=== PATIENT | female | born 1950 | race Caucasian/White ===

== ENCOUNTER 2017-01-05 23:34 | Inpatient (IN) ==
--- NOTE | 2017-01-05 23:52 | Emergency Department Note ---
Arrival - Arrival Chief Complaint: Chest Pain Stated Complaint: Chest pain ED Nursing Triage Note: Patient to ED via EMS transferre to us from [facility] with c/ o chest pain. Patient had elevated troponin and D dimer at other ED. Upon arrival to [place] patient is having no chest pain but c/o right arm pain. Mode of Arrival: Stretcher Limitations: No Limitations Source: Patient Time Seen by Provider: 01/05/17 23:48 - History of Present Illness HPI Narrative: This 66-year-old black female presents with a history of chest pain associated with shortness of breath, nausea, and diaphoresis. The patient initially went to [facility] where she was initially evaluated and found to have both elevated troponins and d-dimer. For that reason she was transferred to our unit. Prior to transfer she was given Lovenox, morphine, aspirin, and Nitrol paste the patient denies a prior cardiac history and in fact feels back to normal at this point time. Onset (ago): hour(s) (Patient presents 4 hours post onset of symptoms) Allergies/Adverse Reactions: Allergies Allergy/AdvReac Type Severity Reaction Status Date / Time No Known Allergies Allergy Unverified 01/05/17 23:42 Review of System - Review of System 12 point system: reviewed and no additional remarkable complaints except as stated - Review of System Constitutional: Present: as per HPI Respiratory: Present: as per HPI Cardiovascular: Present: as per HPI Gastrointestinal: Present: as per HPI Medical,Surgical,& Family Hx - Medical History Cardio: History of: Hypertension Endocrine: History of: Diabetes Mellitus (NIDDM) - Social History Smoking Status: Never smoker Frequency of Alcohol Use: None Type of Drug Use: None Exam Physical Examination: GENERAL: Thin chronically ill-appearing black female in no acute distress. HEENT: Normocephalic. No trauma. Moist mucous membranes. EOMI. PERRLA. ENT NML NECK: Supple. No adenopathy. CARDIAC: Regular. No murmurs. Heart rate 120 CHEST: Clear to auscultation. No respiratory distress. O2 sat 100% ABDOMEN: Soft. Nontender. Active bowel sounds. EXTREMITIES: No trauma. Normal ROM. No pedal edema. SKIN: No diaphoresis. No rash. NEURO: Alert. Neuro intact no focal deficits. Vital Signs: Vital Signs Temperature 98.6 F 01/05/17 23:34 Pulse Rate 116 H 01/05/17 23:34 Respiratory Rate 20 01/05/17 23:50 Blood Pressure 157/71 01/05/17 23:34 O2 Sat by Pulse Oximetry 99 01/05/17 23:34 Course - Reevaluation(s) Reevaluation #1: Have discussed with patient need for hospitalization given evidence of non- STEMI VT - Consultations Consultation #1: Discussed with Dr. Su who will admit the patient for further evaluation treatment. Results - Labs Labs: Lab per [facility] white blood cell count 5700, hematocrit 36.9, d-dimer 1415, troponin 0.234 glucose 237, BUN 10, creatinine 1.2, sodium 137, potassium 3.7. Troponin here is 2.23 and d-dimer 1.1 - Impressions EKG per [facility] reveals sinus tachycardia at 110 with normal SC interval and QRS duration. Noted was either old anterior VT are poor R-wave progression anteriorly. Diffuse nonspecific ST changes. No acute injury pattern noted. EKG: Done on arrival here demonstrates sinus tachycardia at 112 with normal SC interval and QRS duration with evidence of old septal VT versus poor R-wave progression anteriorly. Nonspecific ST changes. No acute injury pattern noted. - Diagnostic Findings Procedure: Chest x-ray: image reviewed by me, report reviewed by me (Evidence of COPD) Disposition Clinical Impression: Non-STEMI VT Case discussed with: patient Disposition: Still a Patient Condition: Guarded Time of Disposition: 01:14
[2017-01-06 00:33] LABS: CKMB % 7.3 %
[2017-01-06 00:35] LABS: Troponin I Only 2.23 NG/ML (0.00-0.045)
[2017-01-06] MEDS ORDERED: HYDROmorphone 2 MG/1 ML VIAL IV PRN (01:50)
[2017-01-06] MEDS ORDERED: DEXTROSE 50% 25 GM/50 ML VIAL IV PRN (01:50)
[2017-01-06] MEDS ORDERED: ONDANSETRON 4 MG/2 ML VIAL IV PRN (01:50)
[2017-01-06] MEDS ORDERED: GLUCAGON 1 MG VIAL IM PRN (01:50)
[2017-01-06] MEDS ORDERED: PNEUMOCOCCAL VACCINE (13 VALENT) 0.5 ML SYRINGE IM ONE (02:49)
[2017-01-06] MEDS: NITROGLYCERIN 2% OINT 1 INCH/GM PACK TOP SCH ×3 (06:16→20:46)
--- NOTE | 2017-01-06 06:33 | EKG Report ---
Stationary ECG Study [facility] Test Date: 01/06/2017 3:37:34 AM Pat Name: BOBBY KHANNA Department: Room: 267 Gender: F Administrative Tech: : 1950 Requested by: Primo Edgar Order Number: [id number] Rosalio MD: ADONIS ABBOTT Intervals [place] Rate: 101 P: 52 ND: 171 QRS: 54 QRSD: 70 T: 50 QT: 346 QTc: 404 Interpretive Statements SINUS TACHYCARDIA LOW QRS VOLTAGE IN CHEST LEADS CANNOT RULE OUT ANTERIOR INFARCT, AGE UNDETERMINED Electronically Signed On 01-06-17 09:28:05 CDT by ADONIS ABBOTT [email or web address]
--- NOTE | 2017-01-06 07:16 | XRay Report ---
Exam: XR chest 1V portable Date: 01/06/2017 1:00 AM Indication: Pain Comparison: 01/05/2017 Technical: AP Findings: External cardiac leads are present. ASVD is present in the aorta. The heart is normal in size. No obvious consolidating infiltrate or effusion. A few reticular nodular densities are present. Mediastinum is intact. Impression: 1. Minimal granuloma change suspected 2. No acute cardiopulmonary pathology PROCEDURE INTERPRETED AT [facility] DEPARTMENT OF RADIOLOGY Final Report Signed by: Dr. Claudio Martinez
--- NOTE | 2017-01-06 07:50 | Cardiology History & Physical ---
Assessment and Plan - Time spent with patient Time spent with patient: Greater than 30 minutes (1) Acute non-ST segment elevation myocardial infarction Status: Acute Assessment and plan: This apparently happened yesterday. We recommend discussed cardiac catheterization possible percutaneous coronary intervention. I reviewed this in detail with her as noted above. At this time she will discuss this with her family. Current Visit: Yes (2) Diabetes mellitus Status: Acute Current Visit: Yes Qualifiers: Diabetes mellitus type: type 2 Diabetes mellitus complication status: with unspecified complications Diabetes mellitus termite renewal inspector insulin use: without termite renewal inspector use Qualified Code(s): E11.8 - Type 2 diabetes mellitus with unspecified complications (3) Hypertension Status: Chronic Assessment and plan: Her blood pressures are elevated at this time. Will adjust her medications. Current Visit: Yes (4) Coronary artery disease Status: Acute Assessment and plan: This is based on the fact she has elevated troponins and symptoms of non-ST segment elevation myocardial infarction. Current Visit: Yes History of Present Illness Chief complaint: Chest pain History of present illness: Ms. Thomson is a 66 year old female who was admitted with chest pain and slightly elevated troponin. She is a fair historian at best. She denies having any prior cardiac history. She states yesterday she was coming out of the bathroom and suddenly just felt dizzy and fell to 4 but was not syncopal or head did not have syncope. She developed chest pain across her upper chest down her right arm. She denies any shortness of breath nausea diaphoresis. She is unable to really describe or qualify the pain. This persisted until EMS who transported her to [facility] where she was treated and resolution of her chest pain. There her troponin was slightly elevated. She was transferred here for further evaluation therapy Here her troponin was 2.2 with a CPK of 231 and an elevated CK-MB fraction. BNP was 137. She has had no further chest pain since admission. Her ECG was sinus rhythm with possible septal myocardial infarction but no acute ST segment changes. I did discuss with the patient that her symptomatology certainly sounds anginal and she has risk factors for coronary disease including that of diabetes and hypertension. I discussed cardiac catheterization and percutaneous coronary intervention with the patient. I reviewed with her the indications for the procedure and the basis of how the procedure would be carried out. I also reviewed with her the risk of the procedure which include but not necessarily limited to access site bleeding, bruising, pain, swelling or vascular injury that may require emergency vascular surgery, blood transfusion, or thrombin injection. Also discussed the possibility of stroke, myocardial infarction, arrhythmia which may require electrocardioversion, and the possibility of dye reaction that would require medical therapy. Also discussed the possibility of coronary artery injury, ruptured, closure or perforation that may require emergency bypass surgery. We also discussed the possibility of from a major complication. Answer all of her questions. She voices understanding but wishes to discuss the situation with her family before proceeding. We will at this time titrate her medications and proceed with catheterization when and if she allows. Home Medications Medication Instructions Recorded Confirmed Type Amlodipine Besylate 10 mg PO DAILY 01/06/17 01/06/17 History Metoprolol Tartrate 25 mg PO BID 01/06/17 01/06/17 History Sulfamethoxazole/Trimethoprim 1 tablet PO BID 01/06/17 01/06/17 History [Sulfamethox/Trimethoprim 800-160 Tab] Tamoxifen Tab [Nolvadex] 20 mg PO DAILY 01/06/17 01/06/17 History cloNIDine TAB [Catapres Tab] 0.1 mg PO BID 01/06/17 01/06/17 History metFORMIN [Glucophage] 500 mg PO BID W/MEALS 01/06/17 01/06/17 History Allergies Allergy/AdvReac Type Severity Reaction Status Date / Time No Known Allergies Allergy Unverified 01/05/17 23:42 Review of systems: Constitutional: Denies anorexia, chills, fatigue, fever, frequent falls, night sweats, weight gain, weight loss Eyes: Denies visual changes or loss of vision Ears: Denies decreased hearing, vertigo Nose, mouth and throat: Denies dysphagia, epistaxis, headaches, neck pain, tongue swelling, Neck: Denies thyromegaly or masses. No stiffness. Cardiovascular: as per HPI Respiratory: Denies cough, dyspnea, hemoptysis, dyspnea on exertion, wheezing, snoring Gastrointestinal: Denies abdominal pain, constipation, dyspepsia, dysphagia, hematemesis, hematochezia, melena, nausea, vomiting Genitourinary: Denies dysuria, hematuria, nocturia Musculoskeletal: Denies arthralgias, joint swelling, muscle weakness, myalgias Neurological: denies abnormal gait, abnormal speech, confusion, convulsions, frequent falls, headaches, memory loss, syncope Psychiatric: Denies anxiety, confusion, depression Endocrine: Denies cold intolerance, fatigue, heat intolerance Hematologic/Lymphatic: Denies easy bleeding, easy bruising Dermatologic: Denies Rash, itching, shingles Medical,Surgical,& Family Hx - Medical History Cardio: History of: Hypertension Endocrine: History of: Diabetes Mellitus (NIDDM) Reproductive: History of: Breast Cancer - Surgical History Reproductive Surgeries: Surgical HX of;: Breast Surgery (Bilateral lumpectomies. ) - Family History Family History: noncontributory - Social History Smoking Status: Never smoker Frequency of Alcohol Use: None Type of Drug Use: None Functional capacity: independent ambulation Cardiology Physical Exam - Constitutional Vitals: Vital Signs Temp Pulse Resp BP Pulse Ox 98.3 F 99 H 18 150/77 98 01/06/17 03:42 01/06/17 03:42 01/06/17 03:42 01/06/17 03:42 01/06/17 03:42 Intake and Output 01/05/17 01/05/17 01/06/17 15:59 23:59 07:59 Other: Voiding Method Toilet # Voids 1 Weight 58.967 kg 55.883 kg Patient Weight 01/06/17 23:59 Weight 55.883 kg Exam: General appearance: normal weight, no acute distress Head exam: normal inspection, atraumatic Eye exam: Pupils are equal and reactive. EOMI. There is no trauma. Ear exam: Anatomically normal. Normal auditory acuity to conversation. Oral exam: No significant oral lesions. Neck exam: normal inspection no JVD. No carotid bruit. Trachea is in midline. Respiratory exam: clear to auscultation bilaterally posteriorly and anteriorly with good air movement. No rales, rhonchi or wheezes. Cardiovascular exam: regular rate and rhythm, no murmur or gallop or rub. No precordial lift. No bruits over the major arteries. Chest wall/torso: Anatomically normal. No tenderness, deformity Peripheral Pulses: 2+ throughout. GI/Abdominal exam: normal bowel sounds, soft and nontender, no abdominal bruits or pulsatile masses. Musculoskeletal/Extremities exam: normal inspection without edema or cyanosis. No deformities or trauma. Neurological exam: alert, oriented X3. There is no gross neurologic deficits. Psychiatric exam: normal affect, normal mood. Cognitive function is grossly intact. Skin exam: normal color, warm. No rashes or other skin lesions. Result/EKG - Labs Lab Results: I have reviewed the past 24 hour labs Labs: Laboratory Results - last 24 hr 01/05/17 01/05/17 01/05/17 23:42 23:42 23:42 D-Dimer, Quantitative 1.1 Total Creatine Kinase 231 H CK-MB (CK-2) 16.9 H CK and CKMB Interp 7.3 Troponin I 2.230 H B-Natriuretic Peptide 137 H - Impressions Impressions: ECG was sinus rhythm with possible to microinfarction. No acute ECG changes.
[2017-01-06] MEDS ORDERED: metFORMIN 500 MG TABLET PO SCH (08:00)
[2017-01-06 08:37] LABS: Basophils % 0.4 % (0.0-0.8); Eosinophils # 0.2 10*3/uL (0.0-0.87); Eosinophils % 4.4 % (0.00-10.9); Hematocrit 35.8 VOL% (35.7-47.0); Hemoglobin 12.5 GM/DL (12.0-16.0); Immature Granulocytes % 0.4 %; Immature Granulocytes Absolute 0.02 #; Lymphocytes # 0.6 10*3/uL (1.4-4.0); Lymphocytes % 12.8 % (21.3-54.2); Mean Corpuscular HGB Conc 34.9 GM/DL (32-36); Mean Corpuscular Hemoglobin 31 PG (27-34); Mean Corpuscular Volume 89.3 FL (87-102); Mean Platelet Volume 10.2 FL (9.6-12.0); Monocytes # 0.7 10*3/uL (0.11-0.8); Monocytes % 16.4 % (1.7-12.7); Neutrophils % 65.6 % (38.7-73.9); Platelet Count 246 T/CUMM (130-400); Red Blood Count 4.01 MC/CUMM (3.8-5.5); Red Cell Distribution Width 12.3 % (9.3-17.3); White Blood Count 4.5 T/CUMM (4-12)
[2017-01-06] MEDS: INSULIN REGULAR 100 UNIT/ML SUBCUT SCH ×4 (08:45→21:46)
--- NOTE | 2017-01-06 08:46 | EKG Report ---
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
[2017-01-06] MEDS ORDERED: METOPROLOL TARTRATE 25 MG TABLET PO SCH (09:00)
[2017-01-06 09:11] LABS: Albumin 3.8 G/DL (3.4-5.0); Bilirubin,Total 0.4 MG/DL (0.2-1.0); Calcium 9.5 MG/DL (8.5-10.1); Potassium 3.8 MMOL/L (3.5-5.1); Total Protein 8.3 G/DL (6.4-8.3)
[2017-01-06 09:13] LABS: CKMB % 8.3 %
[2017-01-06 09:16] LABS: Troponin I Only 10.6 NG/ML (0.00-0.045)
--- NOTE | 2017-01-06 09:26 | EKG Report ---
Stationary ECG Study 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
[2017-01-06 09:36] LABS: Eosinophils 1 % (0-10); Hypochromasia 1+; Lymphocytes 11 % (20-55); Segmented Neutrophils 71 % (50-85); Total Cells Counted 100
[2017-01-06] MEDS ORDERED: MAGNESIUM SULF RIDER 2 GM in PREMIX 1 EACH IV PRN (09:37)
[2017-01-06] MEDS ORDERED: diphenhydrAMINE CAP 25 MG CAPSULE PO ONE (09:37)
[2017-01-06] MEDS ORDERED: POTASSIUM CHLORIDE RIDER 10 MEQ in PREMIX 1 EACH IV PRN (09:37)
[2017-01-06] MEDS ORDERED: DIAZEPAM 5 MG TABLET PO ONE (09:37)
[2017-01-06] MEDS ORDERED: ENOXAPARIN 60 MG/0.6 ML SYRINGE ONE (09:39)
[2017-01-06] MEDS: ENOXAPARIN 60 MG/0.6 ML SYRINGE SUBCUT SCH ×2 (09:40→21:30)
[2017-01-06] MEDS: ASPIRIN 325 MG TABLET PO SCH (09:51)
[2017-01-06] MEDS: PANTOPRAZOLE 40 MG TABLET PO SCH (09:52)
[2017-01-06] MEDS: amLODIPine 10 MG TABLET PO SCH (09:52)
[2017-01-06] MEDS: METOPROLOL TARTRATE 50 MG TABLET PO SCH ×2 (09:53→21:31)
[2017-01-06] MEDS: cloNIDine 0.1 MG TABLET PO SCH ×2 (09:53→21:30)
[2017-01-06] MEDS ORDERED: ATORVASTATIN 40 MG TABLET PO SCH ×2 (10:00→21:00)
[2017-01-06] MEDS: SODIUM CHLORIDE 0.45% 1,000 ML IV SCH ×3 (10:19→21:43)
--- NOTE | 2017-01-06 10:40 | History and Physical Update ---
Sedation H&P Update - History and Physical H&P was reviewed, the patient examined and there: are no changes in the patients condition since last H&P was completed. - Dictation Physical: refer to H&P completed by admitting physician - Physical Exam Mental Status: alert and oriented Heart: regular rate and rhythm Lung: clear to auscultation Abdomen: within normal limits Vitals: within normal limits History and Physical Changes: None - Sedation Plan for Sedation: moderate Patient Consent: Procedure disscussed with patient and patinet has consented., Risks and benefits were discussed with patient,including infection,, bleeding, injury to surrounding structures, seizure, temporary nerve, Patient understands and accepts potential risks/benefits and agrees to, proceed. ASA Class: III Airway Assessment: Class III: Soft palate, base of uvula visible
--- NOTE | 2017-01-06 10:40 | Event Note ---
The patient decided proceed with heart catheterization. We will proceed today with this.
[2017-01-06] MEDS: LOSARTAN 50 MG TABLET PO SCH (12:58)
[2017-01-06] MEDS ORDERED: fentaNYL 100 MCG/2 ML VIAL ONE (13:16)
[2017-01-06] MEDS ORDERED: MIDAZOLAM 2 MG/2 ML VIAL ONE (13:16)
[2017-01-06] MEDS ORDERED: LIDOCAINE 1% 20 ML VIAL ONE (13:40)
--- NOTE | 2017-01-06 13:49 | Operative Note ---
Date of procedure: 01/06/17 Procedure Preformed: Left heart catheterization with LV gram from the right femoral artery. Surgeon / Physician: Primo Su Sales And Service Consultant: Alia Hubbard Post-op diagnosis: same Findings: Total occluded distal LAD at the apex. There is otherwise luminal irregularities and some calcification coronary arteries but no obstructive disease. Apical hypokinesis secondary to the distal LAD occlusion. Specimens: none sent Estimated blood loss: minimal Condition: stable Anesthesia: local, conscious sedation Disposition: floor
--- NOTE | 2017-01-06 14:10 | Cardiac Catheterization ---
Date of Procedure:: 01/06/17 Pre-op Diagnosis: Non-ST segment elevation microinfarction. Post-op diagnosis: same Procedure: LEFT HEART CATHERIZATION History: 66-year-old female who has diabetes risk factor for coronary disease. Yesterday had chest pain early a.m. that continued and was seen and transferred here because of elevated troponin. The patient troponins increased. She has had no further chest pain though since admission or before admission. Pre-Op diagnosis: Non-ST segment elevation myocardial infarction Postoperative diagnosis: Total occluded distal LAD at the apex. Apical wall motion abnormality secondary to this. Procedures: 1. Left heart catheterization. 2. Left ventricular angiogram. 3. Selective left and right coronary angiograms. 4. Right common femoral artery Angio-Seal hemostasis. Equipment: 6 [place] arterial sheath, 6 [place] diagnostic pigtail catheter, JL4 and JR4 diagnostic catheters. A 6 [place] Angio-Seal hemostatic device. Medications: Preoperative Benadryl and Valium given by mouth. Lidocaine 1% local anesthesia 8 mls administered by myself. Intraprocedure patient received Versed 2 mgs IVP, fentanyl 100 mcg IVP. Complications: None immediate. Contrast: Omnipaque 83 milliliters. Description of procedure: After informed consent the patient was given preoperative medications and brought to the catheterization laboratory where their right groin was prepped and draped in usual fashion. IV sedation was then obtained after which local anesthesia was administered at the right groin over the right common femoral artery. Using modified Seldinger technique the right common femoral artery was cannulated with 6 [place] arterial sheath placed. The pigtail catheter was then advanced through the sheath in a retrograde approach through the aorta to the aortic valve. The catheter was advanced through the aortic valve where left ventricular pressures were measured. The catheter was then pulled back into the aortic root and pressures measured. The catheter was then advanced across the aortic valve into the left ventricle where left ventricular angiogram was obtained in the right anterior oblique view. The pigtail catheter was then removed. The JL4 diagnostic coronary catheter was then advanced through the sheath in a retrograde approach and used to cannulate the left coronary artery of which angiograms were obtained in multiple projections. This catheter was then removed. The JR 4 diagnostic coronary catheter was then advanced retrograde through the aorta and used to cannulate the right coronary artery of which angiograms were obtained in multiple projections. Angiograms were then reviewed. The right coronary catheter was removed and Angio-Seal hemostasis was obtained of the right common femoral artery. There were no immediate complications. Hemodynamic data: LV 117/-20 , EDP 6 ; AO root 114/32 , mean 71 . Left ventricular angiogram: The left ventricle is normal size. There is a apical wall motion normality's with distal and inferior apical akinesis. Otherwise there is normal contractility with ejection fraction preserved at 55+% . There is no significant mitral valve regurgitation. There are valve. Tricuspid structure. The thoracic aorta as well as abdominal aorta is grossly normal. Runoff into the iliac system and into the proximal right leg systems are unremarkable. Left main coronary artery angiogram: Medium caliber vessel with some calcification present. This vessel bifurcates into the LAD and circumflex arteries. There is no stenosis or other disease noted except for the calcification. Left anterior descending artery angiogram: The LAD is a medium caliber vessel that extends to the apex but here we see it is totally occluded. First and second diagonal branches are very small caliber vessels. There is calcification in the proximal LAD with luminal irregularities but no obstructive disease. The only obstructive disease with total occlusion of the distal LAD at the apex. The very distal tip of the apical LAD is seen by right to left collaterals but this is very minimal. Circumflex artery angiogram: Circumflex artery is a medium caliber vessel proximally. Proximally gives rise to a medium caliber long first obtuse marginal branch followed by a second obtuse marginal is medium caliber long. Beyond this there is a smaller third obtuse marginal branch and distally the circumflex artery terminates in the form of 3's very small posterior ventricular branches. Right coronary artery angiogram: RCA is a relatively small medium sized vessel. Is probably dominant giving rise to small distal PDA as well as acute marginal branch supplies a portion of posterior ventricular wall. The AV node artery may have is takeoff of this vessel distally. The only stenosis is proximally and is around 20%. PREETI-3 flow is present. Right common femoral artery angiogram: This vessel is actually seen by way of LV gram runoff. The vessel is patent with the sheath inserting the cuff artery. There is successfully initial hemostasis. Impression: 1. Left ventricle is normal size and systolic function ejection 55%. There is distal apical and inferior apical akinesis. 2. LVEDP is normal 6 mmHg. 3. There is no significant mitral valve regurgitation noted. 4. Aortic valve appears to be a tricuspid structure without gradient. 5. Right coronary is codominant probably with the circumflex artery. It is somewhat of a small medium caliber vessel with a 20% proximal eccentric stenosis. 6. Left main coronary artery with some minimal calcification but widely patent. Circumflex artery 7. Circumflex artery is widely patent as is its branches without disease or stenosis. 8. LAD with some proximal calcification and total occlusion at its distal portion at the apex. There is luminal irregularities otherwise. 9. Successful Angio-Seal hemostasis of the right common femoral artery. Discussion: We will marked this patient post catheterization. Risk factor modification is to be aggressive with her blood pressures as well as her diabetes and lipids. We discussed risk factor modification with the patient and cardiac rehab will see the patient. Implants: None Anesthesia: local, moderate conscious sedation Surgeon / Physician: Primo Su Residential Driver: other (Alia LLOYD) Estimated blood loss: minimal Specimens: none sent Condition: stable Disposition: floor - Medications / Follow-up
--- NOTE | 2017-01-06 15:20 | Event Note ---
Patient doing well post catheterization. Right groin stable. I reviewed her findings with the patient and showed her a picture of her left coronary angiograms. Discussed with her our plans. She can feasibly go home in the next 24-48 hours. I did explain to her she has had a non-ST segment elevation myocardial infarction that took place over 24 hours ago.
--- NOTE | 2017-01-06 16:13 | Discharge Summary ---
<Kriss Acosta E - Last Filed: 01/06/17 16:17> Hospital Course - Hospital Course Hospital Course: Ms. Thomson is a 66 year old female who was transferred from [facility] with complaints of with chest pain, slightly elevated troponin January 05, 2017. Symptoms start the evening of December. She was diagnosed with NSTEMI. Underwent elective LHC January 06, 2017, performed by Dr. Su, with the following noted: Impression: 1. Left ventricle is normal size and systolic function ejection 55%. There is distal apical and inferior apical akinesis. 2. LVEDP is normal 6 mmHg. 3. There is no significant mitral valve regurgitation noted. 4. Aortic valve appears to be a tricuspid structure without gradient. 5. Right coronary is codominant probably with the circumflex artery. It is somewhat of a small medium caliber vessel with a 20% proximal eccentric stenosis. 6. Left main coronary artery with some minimal calcification but widely patent. Circumflex artery 7. Circumflex artery is widely patent as is its branches without disease or stenosis. 8. LAD with some proximal calcification and total occlusion at its distal portion at the apex. There is luminal irregularities otherwise. 9. Successful Angio-Seal hemostasis of the right common femoral artery. Discussion: We will marked this patient post catheterization. Risk factor modification is to be aggressive with her blood pressures as well as her diabetes and lipids. We discussed risk factor modification with the patient and cardiac rehab will see the patient. Overnight, patient has done well. She denies chest pain, heaviness or shortness of breath. Labs are stable. Vital signs are stable. Right groin reveals no evidence of hematoma or bruit. Having felt she is met maximal medical therapy, patient is being discharged home in stable condition. Patient was counseled by cardiac rehab prior to discharge. She is being given a 2 week follow-up appoint with Dr. Su. At that visit the following will be obtained, BMP, magnesium, CBC, EKG. The morning morning of visit with Dr. Su, echocardiogram has been ordered as well. Discharge medications include the following: Aspirin 325 mg orally daily Atorvastatin 40 mg orally each evening Losartan 40 mg orally daily Metoprolol 50 mg orally twice daily Amlodipine 10 mg orally daily Patient will resume Metformin Wednesday evening, January 08, 2017 She will resume her other preadmission medications as well. - Time spent with patient Time with patient DS: Greater than 30 minutes Diagnosis - Discharge Diagnosis (1) Dyslipidemia Status: Chronic (2) Acute non-ST segment elevation myocardial infarction Status: Resolved (3) Diabetes mellitus Status: Chronic (4) Hypertension Status: Chronic (5) Coronary artery disease Status: Chronic Specialty Discharge - Follow Up or Referrals Follow up with: Primo Su MD [Physician] - (2 weeks. BMP, Mg, CBC. Echo the morning of visit RE: NSTEMI, cardiomegaly, cardiac evaluation.) Discharge Plan - Discharge Data Disposition: Disch To Home/Self Care - Discharge Medications New Atorvastatin [Lipitor] 40 mg PO BEDTIME #30 tablet cloNIDine TAB [Catapres Tab] 0.1 mg PO BID tablet Losartan [Cozaar] 50 mg PO DAILY #30 tablet Tamoxifen Tab [Nolvadex] 20 mg PO BEDTIME tablet amLODIPine [Norvasc] 10 mg PO DAILY tablet Aspirin Tab 325 mg PO DAILY tablet Metoprolol Tartrate Tab [Lopressor Tab] 50 mg PO BID #60 tablet Continue Tamoxifen Tab [Nolvadex] 20 mg PO DAILY Amlodipine Besylate 10 mg PO DAILY cloNIDine TAB [Catapres Tab] 0.1 mg PO BID Sulfamethoxazole/Trimethoprim [Sulfamethox/Trimethoprim 800-160 Tab] 1 tablet PO BID metFORMIN [Glucophage] 500 mg PO BID W/MEALS #0 Discontinued Metoprolol Tartrate 25 mg PO BID - Follow Up or Referral Follow Up: Primo Su MD [Physician] - (2 weeks. BMP, Mg, CBC. Echo the morning of visit RE: NSTEMI, cardiomegaly, cardiac evaluation.) - Forms/Instructions Instructions: Myocardial Infarction (GEN), Left Heart Catheterization (DC), Heart Healthy Diet (GEN), Cholesterol and Your Health (GEN) Additional Discharge Instructions: Resume metformin Wednesday evening, January 08, 2017 Exam - Constitutional Vitals: Period Temp Pulse Resp BP Sys/[place] Pulse Ox Last 24 Hr 97.1 F-99.7 F 73-102 16-18 104-144/56-71 92-100 Exam: General: [Appears well with no apparent distress.] [Pleasant and cooperative. ] [Appears comfortable.] HEENT: [PERRL, normocephalic, atraumatic. Mucous membranes moist. No jaundice noted. Conjunctiva moist and clear, sclerae anicteric] Neck: No JVD/HJR, no thyromegaly or lymphadenopathy noted. No carotid bruit appreciated Cardiac: [Regular rate and rhythm.] [No obvious murmur rub or gallop.] Lungs: [Clear to auscultation without accessory muscle use to assist the respiratory pattern.] Not requiring oxygen Abdomen: Soft, bowel sounds normoactive. Nontender and nondistended. No abdominal bruit or thrill noted. No masses noted. Musculoskeletal: No fluid collection. Decreased range of motion is noted. Extremities: Right groin soft, free of hematoma or bruit. No clubbing, cyanosis noted. [ No edema noted.] Upper extremity pulses 2+. Lower extremity pulses 2+. Capillary refill less than 3 seconds. Skin: No unusual lesions or rashes. No skin breakdown appreciated. Neuro: Awake, alert and oriented 3. Moves all extremities well without hemiparesis or paralysis. No essential tremor is appreciated. Discharge Results Procedures and tests throughout hospitalization: Pending Orders 01/06/17 08:16 Urinalysis Routine Labs on day of discharge: Labs from last 24 hours 01/07/17 01/07/17 01/07/17 07:59 03:14 03:14 WBC RBC Hgb Hct MCV MCH MCHC RDW Plt Count MPV Neut % (Auto) Lymph % (Auto) [place] % (Auto) Eos % (Auto) Baso % (Auto) Neut # (Auto) Lymph # (Auto) [place] # (Auto) Eos # (Auto) Baso # (Auto) Total Counted Immature Gran % Nucleated RBC % Immature Gran # Segmented Neutrophils Band Neutrophils Lymphocytes Monocytes Eosinophils Nucleated RBCs # Platelet Estimate Hypochromasia Microcytosis [place] Cells Morphology Comment Sodium 139 Potassium 3.9 Chloride 104 Carbon Dioxide 26 Anion Gap 12.9 BUN 7 Creatinine 0.70 GFR Calculation 85 BUN/Creatinine Ratio 10.00 Glucose 85 POC Glucose 90 Calculated Osmolality 273.5 Calcium 9.1 Magnesium 2.1 Total Creatine Kinase 1126 H D CK-MB (CK-2) 19.2 H D CK and CKMB Interp 1.7 Troponin I 8.220 H D Triglycerides Cholesterol LDL Cholesterol VLDL Cholesterol HDL Cholesterol Heart Disease Risk Ratio 01/07/17 01/07/17 01/07/17 03:14 03:14 03:14 WBC 4.8 RBC 3.81 Hgb 11.7 L Hct 34.5 L MCV 90.6 MCH 31 MCHC 33.9 RDW 12.7 Plt Count 266 MPV 10.8 Neut % (Auto) 56.3 Lymph % (Auto) 22.0 [place] % (Auto) 16.3 H Eos % (Auto) 4.6 Baso % (Auto) 0.4 Neut # (Auto) 2.7 Lymph # (Auto) 1.1 L [place] # (Auto) 0.8 Eos # (Auto) 0.2 Baso # (Auto) 0.0 Total Counted 100 Immature Gran % 0.4 Nucleated RBC % 0.0 Immature Gran # 0.02 Segmented Neutrophils 57 Band Neutrophils 1 Lymphocytes 25 Monocytes 8 Eosinophils 9 Nucleated RBCs # 0.00 Platelet Estimate Normal Hypochromasia 1+ Microcytosis Slight [place] Cells Slight Morphology Comment Sodium 138 Potassium 4.1 Chloride 104 Carbon Dioxide 24 Anion Gap 14.1 BUN 7 Creatinine 0.80 GFR Calculation 72 BUN/Creatinine Ratio 8.00 Glucose 85 POC Glucose Calculated Osmolality 271.7 L Calcium 8.6 Magnesium 2.2 Total Creatine Kinase CK-MB (CK-2) CK and CKMB Interp Troponin I Triglycerides 73 Cholesterol 124 LDL Cholesterol 58.0 VLDL Cholesterol 14.6 HDL Cholesterol 51 Heart Disease Risk Ratio 2.43 01/06/17 01/06/17 01/06/17 21:40 15:57 11:47 WBC RBC Hgb Hct MCV MCH MCHC RDW Plt Count MPV Neut % (Auto) Lymph % (Auto) [place] % (Auto) Eos % (Auto) Baso % (Auto) Neut # (Auto) Lymph # (Auto) [place] # (Auto) Eos # (Auto) Baso # (Auto) Total Counted Immature Gran % Nucleated RBC % Immature Gran # Segmented Neutrophils Band Neutrophils Lymphocytes Monocytes Eosinophils Nucleated RBCs # Platelet Estimate Hypochromasia Microcytosis [place] Cells Morphology Comment Sodium Potassium Chloride Carbon Dioxide Anion Gap BUN Creatinine GFR Calculation BUN/Creatinine Ratio Glucose POC Glucose 288 H 187 H 181 H Calculated Osmolality Calcium Magnesium Total Creatine Kinase CK-MB (CK-2) CK and CKMB Interp Troponin I Triglycerides Cholesterol LDL Cholesterol VLDL Cholesterol HDL Cholesterol Heart Disease Risk Ratio 01/06/17 08:26 WBC RBC Hgb Hct MCV MCH MCHC RDW Plt Count MPV Neut % (Auto) Lymph % (Auto) [place] % (Auto) Eos % (Auto) Baso % (Auto) Neut # (Auto) Lymph # (Auto) [place] # (Auto) Eos # (Auto) Baso # (Auto) Total Counted 100 Immature Gran % Nucleated RBC % Immature Gran # Segmented Neutrophils 71 Band Neutrophils Lymphocytes 11 L Monocytes 17 H Eosinophils 1 Nucleated RBCs # Platelet Estimate Hypochromasia 1+ Microcytosis [place] Cells Morphology Comment Sodium Potassium Chloride Carbon Dioxide Anion Gap BUN Creatinine GFR Calculation BUN/Creatinine Ratio Glucose POC Glucose Calculated Osmolality Calcium Magnesium Total Creatine Kinase CK-MB (CK-2) CK and CKMB Interp Troponin I Triglycerides Cholesterol LDL Cholesterol VLDL Cholesterol HDL Cholesterol Heart Disease Risk Ratio - Imaging and Cardiology Cardiology Procedure: report reviewed by me Procedure: Chest x-ray: report reviewed by me DS: Provider Date of admission: 01/06/17 01:01 Primary care physician: Gurdeep Fregoso Attending physician on admission: Daniela Ford Consults: 01/06/17 13:49 Consult to Cardiac Rehabilitation [CONS] Routine Reason for Cardiac Rehabilitation: Risk Factor Modification Discharging clinician: Kriss Acosta NP <Primo Su - Last Filed: 01/07/17 09:39> Hospital Course - Time spent with patient Time with patient DS: Greater than 30 minutes Diagnosis - Discharge Diagnosis (1) Acute non-ST segment elevation myocardial infarction Status: Resolved (2) Diabetes mellitus Status: Chronic (3) Hypertension Status: Chronic (4) Coronary artery disease Status: Chronic Discharge Plan - Discharge Data Condition at Discharge: Stable Discharge Diet: diabetic diet, heart healthy Activity: other (Low-level, nonstrenuous activities over the next 2 weeks.) Hygiene: no restrictions Weight Bearing at Discharge: full weight bearing Driving: not for (4 days) Contact your physician if you experience:: Redness or swelling, Shortness of breath, Bleeding, pain uncontrolled by pain medications Wound / Dressing Care Instructions: May remove dressing from right groin after first shower Discharge Results Procedures and tests throughout hospitalization: Pending Orders 01/06/17 08:16 Urinalysis Routine Cardiac catheterization was carried out that revealed normal left ventricular function with ejection fraction 55-60% and apical akinesis as described. Her distal LAD at the apex is totally occluded. She had minimal disease otherwise. Please see my full report. Echocardiogram is interpreted per minute and revealed ejection fraction 55-60% without any other significant abnormalities appreciated based on report. DS: Provider Expected date of discharge: 01/07/17
[2017-01-06] MEDS ORDERED: TAMOXIFEN 10 MG TABLET PO SCH (21:00)
[2017-01-07] MEDS: NITROGLYCERIN 2% OINT 1 INCH/GM PACK TOP SCH ×3 (01:20→12:57)
[2017-01-07] MEDS: SODIUM CHLORIDE 0.45% 1,000 ML IV SCH ×3 (01:21→10:00)
[2017-01-07 04:44] LABS: Basophils % 0.4 % (0.0-0.8); Eosinophils # 0.2 10*3/uL (0.0-0.87); Eosinophils % 4.6 % (0.00-10.9); Hematocrit 34.5 VOL% (35.7-47.0); Hemoglobin 11.7 GM/DL (12.0-16.0); Immature Granulocytes % 0.4 %; Immature Granulocytes Absolute 0.02 #; Lymphocytes # 1.1 10*3/uL (1.4-4.0); Mean Corpuscular HGB Conc 33.9 GM/DL (32-36); Mean Corpuscular Hemoglobin 31 PG (27-34); Mean Corpuscular Volume 90.6 FL (87-102); Mean Platelet Volume 10.8 FL (9.6-12.0); Monocytes # 0.8 10*3/uL (0.11-0.8); Monocytes % 16.3 % (1.7-12.7); Neutrophils # 2.7 10*3/uL (1.4-7.4); Neutrophils % 56.3 % (38.7-73.9); Platelet Count 266 T/CUMM (130-400); Red Blood Count 3.81 MC/CUMM (3.8-5.5); Red Cell Distribution Width 12.7 % (9.3-17.3); White Blood Count 4.8 T/CUMM (4-12)
[2017-01-07 05:15] LABS: Calcium 8.6 MG/DL (8.5-10.1); Magnesium 2.2 MG/DL (1.8-2.4); Osmolality,Calculated 271.7 MOS/KG (273-304); Potassium 4.1 MMOL/L (3.5-5.1)
[2017-01-07 05:16] LABS: Calcium 9.1 MG/DL (8.5-10.1); Magnesium 2.1 MG/DL (1.8-2.4); Osmolality,Calculated 273.5 MOS/KG (273-304); Potassium 3.9 MMOL/L (3.5-5.1)
[2017-01-07 05:22] LABS: Risk Ratio 2.43; VLDL CHOLESTEROL 14.6 MG/DL
[2017-01-07 05:39] LABS: CKMB % 1.7 %
[2017-01-07 05:52] LABS: Troponin I Only 8.22 NG/ML (0.00-0.045)
[2017-01-07 05:58] LABS: Band Neutrophils 1 % (0-10); Eosinophils 9 % (0-10); Hypochromasia 1+; Lymphocytes 25 % (20-55); Microcytosis Slight; Segmented Neutrophils 57 % (50-85); Total Cells Counted 100
[2017-01-07 05:59] LABS: Burr Cells Slight; Platelet Estimate Normal
--- NOTE | 2017-01-07 07:26 | EKG Report ---
Stationary ECG Study [facility] Test Date: 01/07/2017 7:26:33 AM Pat Name: BOBBY KHANNA Department: Room: 267 Gender: F First Breaker Feeder: CHARISSE : 1950 Requested by: Primo Edgar Order Number: [id number] Rosalio MD: ADONIS ABBOTT Intervals [place] Rate: 73 P: 80 UT: 180 QRS: 37 QRSD: 74 T: -89 QT: 379 QTc: 404 Interpretive Statements SINUS RHYTHM LOW QRS VOLTAGE ANTEROSEPTAL MYOCARDIAL INFARCTION, PROBABLY OLD ST ELEVATION, CONSIDER INFERIOR INJURY ACUTE DC INTERPRETATION BASED ON A DEFAULT AGE OF 40 YEARS Electronically Signed On 01-07-17 07:33:58 CDT by ADONIS ABBOTT [email or web address]
--- NOTE | 2017-01-07 07:41 | ECHO Report ---
Brandi Thomson 01/06/2017 Exam Date: 09:36 Referring Physician: Radha Arias Technologist: KIRK Age: 66 Ht (in): 56 Wt (lb): 123 FExam Location: [facility] Gender: Echo [id number]: tachycardia, Diabetes, hypertension,Indications:CAD, acute non- ST elevation DC BP: 150 / 77 HR: 99 sinus tachycardiaRhythm: FairTechnical Quality: IMPRESSIONS Normal left ventricular cavity size. Mild concentric left ventricular hypertrophy. Hyperdynamic left ventricular systolic function. Left ventricular ejection fraction is estimated at 55-60 %. Normal right ventricular size. Normal right atrial size. Normal left atrial size. Mild mitral valve sclerosis. Mild mitral valve regurgitation. The aortic valve is trileaflet, delicate and has normal motion. Morphologically normal tricuspid valve. Mild tricuspid valve regurgitation. Tricuspid regurgitation velocities suggest a PAP of 33 mmHg. Morphologically normal pulmonic valve. No pericardial effusion. Normal size aortic root and proximal ascending aorta. MEASUREMENTS (Male / Female) Normal Values 2D ECHO LV Diastolic Diameter PLAX 2.7 cm 4.2 - 5.9 / 3.9 - 5.3 cm LV Systolic Diameter PLAX 1.4 cm LV Fractional Shortening PLAX 49.1 % IVS Diastolic Thickness 1.4 cm 0.6 - 1.0 / 0.6 - 0.9 cm LVPW Diastolic Thickness 1.3 cm 0.6 - 1.0 / 0.6 - 0.9 cm RV Internal Dim ED PLAX 2.2 cm Aortic Root Diameter 2.4 cm LA Systolic Diameter LX 2.4 cm 3.0 - 4.0 / 2.7 - 3.8 cm DOPPLER TR Peak Velocity 240.0 cm/s TR Peak Gradient 23.0 mmHg FINDINGS Left Ventricle Normal left ventricular cavity size. Mild concentric left ventricular hypertrophy.hyperdynamic left ventricular systolic function. Left ventricular ejection fraction is estimated at 55-60 %. Right Ventricle Normal right ventricular size. Right Atrium Normal right atrial size. Left Atrium Normal left atrial size. Mitral Valve Mild mitral valve sclerosis. Mild mitral valve regurgitation. Aortic Valve The aortic valve is trileaflet, delicate and has normal motion. Tricuspid Valve Morphologically normal tricuspid valve. Mild tricuspid valve regurgitation. Tricuspid regurgitation velocities suggest a PAP of 33 mmHg. Pulmonic Valve Morphologically normal pulmonic valve. Pericardium No pericardial effusion. Aorta Normal size aortic root and proximal ascending aorta. Korey Baeza MD (Electronically Signed) 07 January 2017 Final Date: 07:40
[2017-01-07] MEDS: INSULIN REGULAR 100 UNIT/ML SUBCUT SCH ×2 (09:40→12:57)
[2017-01-07] MEDS: METOPROLOL TARTRATE 50 MG TABLET PO SCH (09:40)
[2017-01-07] MEDS: ASPIRIN 325 MG TABLET PO SCH (09:40)
[2017-01-07] MEDS: ENOXAPARIN 60 MG/0.6 ML SYRINGE SUBCUT SCH (09:40)
[2017-01-07] MEDS: LOSARTAN 50 MG TABLET PO SCH (09:40)
[2017-01-07] MEDS: PANTOPRAZOLE 40 MG TABLET PO SCH (09:40)
[2017-01-07] MEDS: cloNIDine 0.1 MG TABLET PO SCH (09:40)
[2017-01-07] MEDS: amLODIPine 10 MG TABLET PO SCH (09:40)
[2017-01-07 10:24] LABS: Apearance,Urine CLEAR (Clear); Bacteria,Urine Occasional /HPF (Few); Bilirubin,Urine Negative (Negative); Blood, Urine Small mg/dL (Negative); Glucose,Urine (UA) 50 mg/dL (Negative); Ketones,Urine Negative (Negative); Mucus,Urine Occasional /LPF (Occasional); Nitrite,Urine Negative (Negative); Protein,Urine Negative; RBC,Urine 1 /HPF (0-4); Squamous Epithelial Cell,Urine Occasional /HPF (0-10); Urine Color Yellow (Yellow); Urine Specific Gravity 1.005 (1.001-1.035); Urine Urobilinogen < 2.0 EU/DL (0.2-1.0); WBC,Urine 1 /HPF (0-6)
[2017-01-07 12:32] VITALS: BP 108/60
== END 2017-01-07 14:55 | disposition home health service (06) | DRG 281 ==
LOC: EDBD → EDUNIT# → N.ED 23:34 → N.EDINP 01-06 01:01 → N.TELES 01-06 01:44
PROVIDERS: ADMIT Internal Medicine Cardiovascular Disease; ATTEND Internal Medicine Cardiovascular Disease
PROC: CLCCHCL (ICD-10-PCS; 2017-01-06 14:45)

== ENCOUNTER 2018-10-22 10:34 | Inpatient (IN) ==
[2018-10-22 12:04] LABS: CKMB % 6.1 %
[2018-10-22 12:06] LABS: Troponin I 1.63 NG/ML (0.00-0.045)
[2018-10-22] MEDS ORDERED: GLUCAGON 1 MG VIAL IM PRN (15:17)
[2018-10-22] MEDS ORDERED: DEXTROSE 50% 25 GM/50 ML SYRINGE IV PRN (15:17)
[2018-10-22] MEDS ORDERED: ZALEPLON 5 MG CAPSULE PO PRN (15:25)
[2018-10-22 15:31] LABS: CKMB % 8.8 %
[2018-10-22 15:41] LABS: Troponin I 2.75 NG/ML (0.00-0.045)
[2018-10-22] MEDS: PANTOPRAZOLE 40 MG TABLET PO SCH (17:09)
[2018-10-22] MEDS: ATORVASTATIN 40 MG TABLET PO SCH (17:10)
[2018-10-22] MEDS: ENOXAPARIN 60 MG/0.6 ML SYRINGE SUBCUT SCH (17:10)
[2018-10-22] MEDS: metFORMIN 500 MG TABLET PO SCH (17:10)
[2018-10-22] MEDS: TAMOXIFEN 10 MG TABLET PO SCH (20:35)
[2018-10-22] MEDS: cloNIDine 0.1 MG TABLET PO SCH (20:36)
[2018-10-22] MEDS: METOPROLOL TARTRATE 50 MG TABLET PO SCH (20:36)
[2018-10-22] MEDS: DOCUSATE SODIUM 100 MG CAPSULE PO SCH (20:36)
[2018-10-22 21:18] LABS: CKMB % 8.5 %
[2018-10-22 21:21] LABS: Troponin I 5.27 NG/ML (0.00-0.045)
[2018-10-23 03:03] LABS: Basophils % 0.1 % (0.0-0.8); Eosinophils # 0.3 10*3/uL (0.0-0.87); Eosinophils % 4.7 % (0.00-10.9); Hematocrit 36.1 VOL% (35.7-47.0); Hemoglobin 11.3 GM/DL (12.0-16.0); Immature Granulocytes % 0.4 %; Immature Granulocytes Absolute 0.03 #; Lymphocytes # 1.2 10*3/uL (1.4-4.0); Lymphocytes % 17.1 % (21.3-54.2); Mean Corpuscular HGB Conc 31.3 GM/DL (32-36); Mean Corpuscular Volume 96.5 FL (87-102); Monocytes % 13.1 % (1.7-12.7); Neutrophils % 64.6 % (38.7-73.9); Platelet Count 314 T/CUMM (130-400); Red Blood Count 3.74 MC/CUMM (3.8-5.5); Red Cell Distribution Width 12.7 % (9.3-17.3); White Blood Count 6.9 T/CUMM (4-12)
[2018-10-23] MEDS: ENOXAPARIN 60 MG/0.6 ML SYRINGE SUBCUT SCH ×2 (03:20→16:07)
[2018-10-23 03:29] LABS: Calcium 8.7 MG/DL (8.5-10.1); Risk Ratio 2.09; VLDL CHOLESTEROL 13.6 MG/DL
[2018-10-23 03:30] LABS: CKMB % 7.3 %
[2018-10-23 03:33] LABS: Troponin I 5.65 NG/ML (0.00-0.045)
[2018-10-23] MEDS: amLODIPine 10 MG TABLET PO SCH (08:10)
[2018-10-23] MEDS: cloNIDine 0.1 MG TABLET PO SCH ×2 (08:10→20:18)
[2018-10-23] MEDS: ASPIRIN 325 MG TABLET PO SCH (08:10)
[2018-10-23] MEDS: metFORMIN 500 MG TABLET PO SCH (08:10)
[2018-10-23] MEDS: PANTOPRAZOLE 40 MG TABLET PO SCH (08:10)
[2018-10-23] MEDS: DOCUSATE SODIUM 100 MG CAPSULE PO SCH ×2 (08:10→20:18)
[2018-10-23] MEDS: METOPROLOL TARTRATE 50 MG TABLET PO SCH ×2 (08:11→20:18)
[2018-10-23] MEDS: ATORVASTATIN 40 MG TABLET PO SCH (08:11)
[2018-10-23] MEDS ORDERED: LOSARTAN 50 MG TABLET PO SCH (09:00)
[2018-10-23] MEDS ORDERED: SODIUM CHLORIDE 0.9% 1,000 ML IV SCH (11:30)
[2018-10-23] MEDS: TAMOXIFEN 10 MG TABLET PO SCH (20:19)
[2018-10-24] MEDS: ENOXAPARIN 60 MG/0.6 ML SYRINGE SUBCUT SCH (04:32)
[2018-10-24] MEDS ORDERED: diphenhydrAMINE CAP 25 MG CAPSULE PO ONE (07:41)
[2018-10-24] MEDS ORDERED: POTASSIUM CHLORIDE RIDER 10 MEQ in PREMIX 1 EACH IV PRN (07:41)
[2018-10-24] MEDS ORDERED: MAGNESIUM SULF RIDER 2 GM in PREMIX 1 EACH IV PRN (07:41)
[2018-10-24] MEDS ORDERED: DIAZEPAM 5 MG TABLET PO ONE (07:41)
[2018-10-24] MEDS: METOPROLOL TARTRATE 50 MG TABLET PO SCH ×2 (08:58→20:40)
[2018-10-24] MEDS: cloNIDine 0.1 MG TABLET PO SCH ×2 (08:58→20:40)
[2018-10-24] MEDS: ATORVASTATIN 40 MG TABLET PO SCH (08:58)
[2018-10-24] MEDS: amLODIPine 10 MG TABLET PO SCH (08:58)
[2018-10-24] MEDS: ASPIRIN 325 MG TABLET PO SCH (08:58)
[2018-10-24] MEDS: PANTOPRAZOLE 40 MG TABLET PO SCH (08:58)
[2018-10-24] MEDS: SODIUM CHLORIDE 0.45% 1,000 ML IV SCH ×3 (08:59→18:51)
[2018-10-24] MEDS: DOCUSATE SODIUM 100 MG CAPSULE PO SCH ×2 (09:55→20:40)
[2018-10-24] MEDS ORDERED: VERAPAMIL 5 MG/2 ML VIAL ONE (13:01)
[2018-10-24] MEDS ORDERED: LIDOCAINE 1% 20 ML VIAL ONE (13:01)
[2018-10-24] MEDS ORDERED: NITROGLYCERIN DRIP 50 MG/250 ML BOTTLE IV ONE (13:01)
[2018-10-24] MEDS ORDERED: MIDAZOLAM 2 MG/2 ML VIAL ONE (13:03)
[2018-10-24] MEDS ORDERED: fentaNYL 100 MCG/2 ML VIAL ONE (13:03)
[2018-10-24] MEDS ORDERED: NITROGLYCERIN SL 0.4 MG TABLET SL PRN (13:43)
[2018-10-24] MEDS ORDERED: DEXTROSE 50% 25 GM/50 ML SYRINGE IV PRN (13:43)
[2018-10-24] MEDS ORDERED: GLUCAGON 1 MG VIAL IM PRN (13:43)
[2018-10-24] MEDS: TAMOXIFEN 10 MG TABLET PO SCH (20:40)
[2018-10-25] MEDS: SODIUM CHLORIDE 0.45% 1,000 ML IV SCH ×2 (01:50→15:46)
[2018-10-25 04:32] LABS: Basophils % 0.3 % (0.0-0.8); Eosinophils # 0.2 10*3/uL (0.0-0.87); Eosinophils % 4.7 % (0.00-10.9); Hematocrit 32.7 VOL% (35.7-47.0); Hemoglobin 10.2 GM/DL (12.0-16.0); Immature Granulocytes % 0.3 %; Immature Granulocytes Absolute 0.01 #; Lymphocytes # 1.1 10*3/uL (1.4-4.0); Lymphocytes % 27.6 % (21.3-54.2); Mean Corpuscular HGB Conc 31.2 GM/DL (32-36); Mean Corpuscular Volume 95.3 FL (87-102); Monocytes % 16.9 % (1.7-12.7); Neutrophils % 50.2 % (38.7-73.9); Platelet Count 291 T/CUMM (130-400); Red Blood Count 3.43 MC/CUMM (3.8-5.5); Red Cell Distribution Width 12.8 % (9.3-17.3); White Blood Count 3.8 T/CUMM (4-12)
[2018-10-25 04:44] VITALS: BP 117/50
[2018-10-25 05:00] LABS: Calcium 8.7 MG/DL (8.5-10.1); Osmolality,Calculated 280.4 MOS/KG (273-304)
[2018-10-25 05:59] LABS: Anisocytosis 1+; Eosinophils 3 % (0-10); Lymphocytes 26 % (20-55); Platelet Estimate Adequate; Segmented Neutrophils 53 % (50-85); Total Cells Counted 100
[2018-10-25 06:00] LABS: Burr Cells Slight; Hypochromasia Slight
[2018-10-25] MEDS ORDERED: ENOXAPARIN 40 MG/0.4 ML SYRINGE SUBCUT SCH (07:47)
[2018-10-25] MEDS ORDERED: ASPIRIN EC 81 MG TABLET PO SCH (09:00)
[2018-10-25] MEDS ORDERED: CLOPIDOGREL 75 MG TABLET PO SCH (09:00)
[2018-10-25] MEDS: amLODIPine 10 MG TABLET PO SCH (09:23)
[2018-10-25] MEDS: DOCUSATE SODIUM 100 MG CAPSULE PO SCH (09:23)
[2018-10-25] MEDS: cloNIDine 0.1 MG TABLET PO SCH (09:25)
[2018-10-25] MEDS: ATORVASTATIN 40 MG TABLET PO SCH (09:25)
[2018-10-25] MEDS: PANTOPRAZOLE 40 MG TABLET PO SCH (09:27)
[2018-10-25] MEDS: METOPROLOL TARTRATE 50 MG TABLET PO SCH (09:27)
== END 2018-10-25 15:23 | disposition home health service (06) | DRG 282 ==
LOC: EDBD → EDUNIT# → N.ED 10:34 → N.EDINP 12:41 → N.CC 13:21
PROVIDERS: ADMIT Internal Medicine Cardiovascular Disease; ATTEND Internal Medicine Cardiovascular Disease
PROC: CLCCHCL (ICD-10-PCS; 2018-10-24 13:45)